=== PATIENT | female | born 1995 ===

== ENCOUNTER 2022-04-19 14:03 | Emergency (ER) | payer MEDICAID ==
[2022-04-19] MEDS ORDERED: Cephalexin 500 MG Cap PO ONE (14:04)
[2022-04-19] MEDS ORDERED: Cephalexin 500 MG Cap ONE (14:45)
[2022-04-19] MEDS ORDERED: Mupirocin Oint 22 GM Tube ONE (14:45)
== END 2022-04-19 14:59 | disposition home or self-care (01) ==
LOC: DL.ED 14:03 → MERGE 14:03 → DL.ED 14:59
DX: L01.00 Impetigo, unspecified (principal)
CPT/HCPCS: 99282; A9270